=== PATIENT | male | born 1975 | race Caucasian/White ===

== ENCOUNTER 2016-10-06 09:13 | Emergency (ER) | payer OTHER ==
[~2016-10-06] VITALS: Ht 188 cm; Wt 92.6 kg
[~2016-10-06 09:13] MED LIST: RANI75TA12 PO
[2016-10-06 09:14] VITALS: BP 135/79
[2016-10-06] MEDS ORDERED: KETOROLAC 30 MG/1 ML ONE (09:50)
[2016-10-06] MEDS ORDERED: DIAZEPAM 5 MG TABLET ONE (09:50)
[2016-10-06] MEDS ORDERED: DIAZEPAM 5 MG TABLET PO ONE (10:00)
[2016-10-06] MEDS ORDERED: KETOROLAC 30 MG/1 ML IM ONE (10:00)
[2016-10-07] MEDS ORDERED: METH750T87 PO (19:52)
[2016-10-07] MEDS ORDERED: OMEP-110 PO (19:52)
[2016-10-07] MEDS ORDERED: IBUP200C PO (19:52)
== END 2016-10-06 10:40 | disposition home or self-care (01) ==
LOC: ED 09:40
DX: S29.012A Strain of muscle and tendon of back wall of thorax, initial encounter (principal); X58.XXXA Exposure to other specified factors, initial encounter; Y93.89 Activity, other specified; Y99.8 Other external cause status; Y92.89 Other specified places as the place of occurrence of the external cause
CPT/HCPCS: 96372; 99283; J1885

== ENCOUNTER 2016-10-07 18:51 | Emergency (ER) | payer OTHER ==
[~2016-10-07] VITALS: Ht 190.5 cm; Wt 92.5 kg
[2016-10-07 18:54] VITALS: BP 131/84
[2016-10-07] MEDS ORDERED: OXYcodone/APAP 5/325MG TABLET ONE (19:48)
[2016-10-07] MEDS ORDERED: METH750T87 PO (19:52)
[2016-10-07] MEDS ORDERED: OMEP-110 PO (19:52)
[2016-10-07] MEDS ORDERED: IBUP200C PO (19:52)
[2016-10-07] MEDS ORDERED: OXYcodone/APAP 5/325MG TABLET PO ONE (20:00)
== END 2016-10-07 20:26 | disposition home or self-care (01) ==
LOC: ED 19:09
DX: M54.2 Cervicalgia (principal); M19.90 Unspecified osteoarthritis, unspecified site; M54.14 Radiculopathy, thoracic region; F17.200 Nicotine dependence, unspecified, uncomplicated
CPT/HCPCS: 72125; 99284

== ENCOUNTER 2019-05-01 15:44 | Emergency (ER) | payer OTHER ==
[~2019-05-01] VITALS: Ht 188 cm; Wt 96.0 kg
[~2019-05-01 15:44] MED LIST changes: +IBUP-1623 PO; +METH750T87 PO; +OMEP-110 PO; +RANI-244 PO; -RANI75TA12 PO
--- NOTE | 2019-05-01 16:32 | NUR ---
SPENT ABOUT 40 MINUTES WITH PATIENT BAILEY FROM [facility] SPOKE WITH HIM. FOLLOWED ISOLATION GUIDELINES PER [facility].
--- NOTE | 2019-05-01 16:33 | NUR ---
AWAITING CALL BACK FROM BAILEY CAPUTO ON ISOLATION AND TESTING. WILL CONTINUE TO MONITOR.
[2019-05-01 16:49] LABS: RAPID INFLUENZA A Negative (Negative); RAPID INFLUENZA B Negative (Negative)
--- NOTE | 2019-05-01 17:10 | NUR ---
[facility] CALLED BACK. MADE RECOMMENDATIONS AFTER SPEAKING WITH CDC. RECOMMENDATIONS INCLUDE REMOVAL OF ISOLATION AND APPROPRIATE TREATMENT FOR A VIRAL/BACTERIAL INFECTION.
--- NOTE | 2019-05-01 17:32 | NUR ---
PT GIVEN D/C PAPERWORK. ERMD HAD SPOKE TO PT PRIOR. PT AWARE IF HE DEVELOPS SOB AND FEVER HE NEEDS TO COME BACK. HOWEVER, ASKED TO PLEASE CALL BEFORE COMING IN. PT GIVEN D/C PAPERWORK. PT VERBALIZED UNDERSTANDING. PT AMBULATED TO RESTROOM WITH STEADY GAIT.
[2019-05-01 17:34] VITALS: BP 153/85
== END 2019-05-01 17:36 | disposition home or self-care (01) ==
LOC: ED 17:20
DX: J00 Acute nasopharyngitis [common cold] (principal)
CPT/HCPCS: 87400; 99283